=== PATIENT | male | born 1970 | race Caucasian/White ===

== ENCOUNTER → 2023-03-24 | Outpatient (CLI) | payer OTHER ==
--- NOTE | 2023-03-24 11:24 | Diagnostic Imaging Report ---
PROCEDURE: US left lower extremity venous. TECHNIQUE: Multiple real-time grayscale images were obtained over the left lower extremity in various projections. Additional duplex Doppler and color Doppler images were also obtained. INDICATION: Left leg swelling The veins of the left leg have good color filling and compressibility. There is phasic flow and normal response to augmentation. IMPRESSION: Negative venous Doppler left leg Dictated by: Dictated on workstation # [id number]
== END ==
LOC: RAD 10:25
PROVIDERS: ATTEND Family Medicine
DX: M79.89 Other specified soft tissue disorders (principal)

== ENCOUNTER → 2023-03-26 | Outpatient (CLI) | payer OTHER ==
[~2023-03-26] MED LIST: IOHEXOL 350 MG/ML 100 ML (OMNIPAQUE 350) VIAL IV ONE; NS 100 ML (IVPB) BAG IV ONE
--- NOTE | 2023-03-26 17:13 | Diagnostic Imaging Report ---
PROCEDURE: CT left lower extremity with contrast. TECHNIQUE: Multiple axial images of the left lower extremity were obtained after intravenous administration of iodinated contrast. Auto Exposure Controls were utilized during the CT exam to meet ALARA standards for radiation dose reduction. INDICATION: Calf pain. COMPARISON: Left lower extremity Doppler from 03/24/2023. FINDINGS: Mixed attenuation collection in the superficial aspect of the medial head of gastrocnemius is most compatible with a hematoma. This measures approximately 9 x 5 x 2 cm. The origin of the medial head of gastrocnemius remains intact. The soleus muscle is normal. Anterior and lateral compartment muscles of the lower leg are normal. No fracture or periosteal reaction associated with the tibia or fibula. IMPRESSION: 1. An intramuscular hematoma involving the superficial aspect of the medial head of gastrocnemius is likely due to partial muscle tear along the myofascial junction. Recommend followup physical exam to document resolution. If this does not significantly improve in 6 weeks, then at that time MRI of the lower leg without and with IV contrast would be advised. Dictated by: Dictated on workstation # [id number]
[2023-03-26 17:17] LABS: BILIRUBIN,TOTAL 0.8 MG/DL (0.1-1.0); CALCIUM 9.1 MG/DL (8.5-10.1); CREATININE SERUM 0.81 MG/DL (0.60-1.30); POTASSIUM 3.3 MMOL/L (3.6-5.0); TOTAL PROTEIN 6.8 GM/DL (6.4-8.2)
== END ==
LOC: RAD 15:38
PROVIDERS: ATTEND Family Medicine
DX: S80.12XA Contusion of left lower leg, initial encounter (principal); X58.XXXA Exposure to other specified factors, initial encounter
CPT/HCPCS: 36415; 73701; 80053

== ENCOUNTER 2023-08-05 13:04 | Emergency (ER) | payer OTHER ==
[~2023-08-05] VITALS: Ht 177.8 cm; Wt 115.7 kg
--- NOTE | 2023-08-05 13:18 | ED Chest Pain ---
General Chief Complaint: Chest Pain Stated Complaint: CHEST AND BACK PAIN Nursing Triage Note: PT AMB TO RM 6 WITH C/O CP X30 MIN RADIATING TO BACK AND L ARM. PT HAS TAKEN 81MG ASA TODAY Source: patient Exam Limitations: no limitations History of Present Illness Date Seen by Provider: Aug 05, 2023 Time Seen by Provider: 13:09 Initial Comments This 52 year old man with known CAD presents to the ER with complaints of chest pain and mid back pain similar to pain he experienced with prior AR about 1 year ago that was treated with stenting at [facility]. Pain started about 30 min INTAKE COORDINATOR. Pain was rated at 7/10 at its worst and is now 3/10. He took his usual ASA 81 mg today but did not take any nitro. He denies any associated symptoms of noted any exacerbating or alleviating factors. Dr. Hodges is his sustainability manager and Dr. Myers is his PCP. He is rather hypertensive on arrival. He has chronic sinus bradycardia which he reports is stable. Allergies and Home Medications Allergies Coded Allergies: No Allergy Information Available (Unverified , 03/26/23) Patient Home Medication List Home Medication List Reviewed: Yes Review of Systems Review of Systems Constitutional: no symptoms reported EENTM: No Symptoms Reported Respiratory: No Symptoms Reported Cardiovascular: See HPI Gastrointestinal: No Symptoms Reported Genitourinary: No Symptoms Reported Musculoskeletal: no symptoms reported Skin: no symptoms reported Psychiatric/Neurological: No Symptoms Reported Endocrine: No Symptoms Reported Hematologic/Lymphatic: No Symptoms Reported Past Gqzeemw-Arnull-Rgdqdr Hx Patient Social History Tobacco Use?: No Use of E-Cig and/or Vaping dev: No Substance use?: No Alcohol Use?: No Pt feels they are or have been: No Past Medical History Surgery/Hospitalization HX: AR, HTN, HERNIA Surgeries: Yes Coronary Stent Respiratory: No Cardiac: Yes (chronic sinus bradycardia) Coronary Artery Disease, Hypertension Neurological: No Genitourinary: No Gastrointestinal: Yes (umbilical hernia) Musculoskeletal: No Endocrine: No HEENT: No Cancer: No Psychosocial: No Integumentary: No Physical Exam Vital Signs Vital Signs - First Documented 08/05/23 13:09 Temp 36.0 Pulse 49 Resp 16 B/P (MAP) 189/102 (131) Pulse Ox 100 O2 Delivery Room Air Capillary Refill : Height, Weight, BMI Height: '" Weight: lbs. oz. kg; 36.00 BMI Method: General Appearance: No Apparent Distress, WD/WN, Obese HEENT: PERRL/EOMI, Normal ENT Inspection Neck: Normal Inspection; No JVD Respiratory: Chest Non Tender, Lungs Clear, Normal Breath Sounds, No Accessory Muscle Use Cardiovascular: Regular Rate, Rhythm, No Edema, No Murmur, Normal Peripheral Pulses Gastrointestinal: Normal Bowel Sounds, Non Tender, Soft, Other (small umbilical hernia noted) Extremity: Normal Inspection, Non Tender, No Calf Tenderness, No Pedal Edema Neurologic/Psychiatric: Alert, Oriented x3, No Motor/Sensory Deficits, Normal Mood/Affect, director pharmaceutical II-XII Norm as Tested Skin: Normal Color, Warm/Dry Progress/Results/Core Measures Results/Orders Lab Results Laboratory Tests Test 08/05/23 13:15 08/05/23 16:45 Range/Units White Blood Count 7.2 4.3-11.0 10^3/uL Red Blood Count 5.55 H 4.30-5.52 10^6/uL Hemoglobin 16.0 13.3-17.7 g/dL Hematocrit 48 40-54 % Mean Corpuscular Volume 87 80-99 fL Mean Corpuscular Hemoglobin 29 25-34 pg Mean Corpuscular Hemoglobin Concent 33 32-36 g/dL Red Cell Distribution Width 13.0 10.0-14.5 % Platelet Count 230 130-400 10^3/uL Mean Platelet Volume 9.9 9.0-12.2 fL Immature Granulocyte % (Auto) 0 % Neutrophils (%) (Auto) 66 42-75 % Lymphocytes (%) (Auto) 19 12-44 % Monocytes (%) (Auto) 10 0-12 % Eosinophils (%) (Auto) 5 0-10 % Basophils (%) (Auto) 1 0-10 % Neutrophils # (Auto) 4.7 1.8-7.8 10^3/uL Lymphocytes # (Auto) 1.3 1.0-4.0 10^3/uL Monocytes # (Auto) 0.7 0.0-1.0 10^3/uL Eosinophils # (Auto) 0.4 H 0.0-0.3 10^3/uL Basophils # (Auto) 0.1 0.0-0.1 10^3/uL Immature Granulocyte # (Auto) 0.0 0.0-0.1 10^3/uL Prothrombin Time 12.3 12.2-14.7 SEC INR Comment 0.9 0.8-1.4 Activated Partial Thromboplast Time 29 24-35 SEC Sodium Level 142 135-145 MMOL/L Potassium Level 3.6 3.6-5.0 MMOL/L Chloride Level 105 98-107 MMOL/L Carbon Dioxide Level 27 21-32 MMOL/L Anion Gap 10 5-14 MMOL/L Blood Urea Nitrogen 8 7-18 MG/DL Creatinine 0.77 0.60-1.30 MG/DL Estimat Glomerular Filtration Rate 107 BUN/Creatinine Ratio 10 Glucose Level 102 70-105 MG/DL Calcium Level 9.2 8.5-10.1 MG/DL Corrected Calcium 8.5-10.1 MG/DL Magnesium Level 2.2 1.6-2.4 MG/DL Total Bilirubin 0.5 0.1-1.0 MG/DL Aspartate Amino Transf (AST/SGOT) 19 5-34 U/L Alanine Aminotransferase (ALT/SGPT) 26 0-55 U/L Alkaline Phosphatase 74 40-136 U/L Myoglobin 32.7 10.0-92.0 NG/ML Troponin I < 0.028 < 0.028 <0.028 NG/ML Total Protein 8.0 6.4-8.2 GM/DL Albumin 4.6 H 3.2-4.5 GM/DL My Orders Orders - WAQAR JOHANSEN MD Ekg Tracing (08/05/23 13:08) Cbc And Automated Diff (08/05/23 13:09) Magnesium (08/05/23 13:09) Chest 1 View, Ap/Pa Only (08/05/23 13:09) Comprehensive Metabolic Panel (08/05/23 13:09) Myoglobin Serum (08/05/23 13:09) Protime With Inr (08/05/23 13:09) Partial Thromboplastin Time (08/05/23 13:09) O2 (08/05/23 13:09) Monitor-Rhythm Ecg Trace Only (08/05/23 13:09) Ed Iv/Invasive Line Start (08/05/23 13:09) Troponin I [place] (08/05/23 13:09) Nitroglycerin 0.4 Mg Btl 25's (Nitroglyc (08/05/23 13:30) Aspirin Chewable Tablet (Aspirin Chewabl (08/05/23 13:30) Troponin I [place] (08/05/23 16:45) Medications Given in ED Vital Signs/I&O 08/05/23 08/05/23 13:09 18:01 Temp 36.0 Pulse 49 40 Resp 16 16 B/P (MAP) 189/102 (131) 118/71 Pulse Ox 100 100 O2 Delivery Room Air Room Air Blood Pressure Mean: 131 Progress Progress Note : Progress Note ASA 243 mg was administered. Nitro was ordered but not given as chest pain dissipated with treatment. BP trended to normal without treatment. Chest pain work-up was pursued. ECG demonstrated sinus bradycardia with out other arrhythmia or ischemia as noted in my interpretation below. All labs were rev iewed and interpreted by me. CBC, CMP, Mag, Troponin, and serial 4 hour troponin were all normal. Chest x-ray was negative per review of radiologists report. Patient remained pain free and was discharged in stable condition. Initial ECG Impression Date: Aug 05, 2023 Initial ECG Impression Time: 13:10 Initial ECG Rate: 50 Initial ECG Rhythm: S.[place]aqu[place] Initial ECG Impression: Normal Comment Sinus bradycardia with no ST elevation or depression. No abnormal intervals or axis deviation. Diagnostic Imaging Diagonstic Imaging: Xray Plain Films/CT/US/NM/MRI: chest Comments NAME: [facility] REC#: [id number] PT STATUS: REG ER : 1970 PHYSICIAN: WAQAR JOHANSEN MD ADMIT DATE: 08/05/23/ER Signed Date of Exam:08/05/23 CHEST 1 VIEW, AP/PA ONLY PATIENT HISTORY: Chest pain. TECHNIQUE: Single frontal view of the chest. COMPARISON: None FINDINGS: The lung volumes are normal. No focal consolidation is seen. No large pleural effusion or pneumothorax is seen, although the right costophrenic angle is incompletely included. The cardiomediastinal silhouette is normal in size and contour. No acute osseous abnormality is seen. IMPRESSION: No acute pulmonary abnormality seen. Dictated by: Dictated on workstation # [id number] Dict: 08/05/23 1330 Trans: 08/05/23 1337 [facility] [id number] Interpreted by: KSENIA TOLLIVER MD Electronically signed by: KSENIA TOLLIVER MD 08/05/23 1337 Departure Impression Primary Impression: Chest pain Qualified Codes: R07.9 - Chest pain, unspecified Additional Impression: History of coronary artery disease Disposition: HOME, SELF-CARE Condition: Improved Departure-Patient Inst. Decision time for Depature: 17:34 Referrals: CHRISTIE MYERS MD (PCP/Family) Primary Care Physician Patient Instructions: Chest Pain, Adult ED Add. Discharge Instructions: Your work-up in the emergency room was unremarkable. However, your emergency room work-up does not completely rule out heart disease as a possible cause of your chest pain. It is important for you to follow-up with your primary cardio logist for further evaluation and recommendations. Return to the emergency room if you have worsening symptoms, especially if you have recurrent episodes of chest pain. Continue your medications and treatment plan as otherwise directed by your sustainability manager and primary care provider. All discharge instructions reviewed with patient and/or family. Voiced understanding. Copy Copies To 1: CHRISTIE MYERS MD, JOSHUA T MD Aug 05, 2023 13:18
[2023-08-05 13:23] LABS: BASOPHILS # (AUTO) 0.1 10^3/uL (0.0-0.1); BASOPHILS % (AUTO) 1 % (0-10); EOSINOPHILS # (AUTO) 0.4 10^3/uL (0.0-0.3); EOSINOPHILS % (AUTO) 5 % (0-10); HEMATOCRIT 48 % (40-54); LYMPHOCYTES # (AUTO) 1.3 10^3/uL (1.0-4.0); LYMPHOCYTES % (AUTO) 19 % (12-44); MEAN CORPUSCULAR HEMOGLOBIN 29 pg (25-34); MEAN CORPUSCULAR HGB CONC 33 g/dL (32-36); MEAN CORPUSCULAR VOLUME 87 fL (80-99); MEAN PLATELET VOLUME 9.9 fL (9.0-12.2); MONOCYTES # (AUTO) 0.7 10^3/uL (0.0-1.0); MONOCYTES % (AUTO) 10 % (0-12); NEUTROPHILS # (AUTO) 4.7 10^3/uL (1.8-7.8); NEUTROPHILS % (AUTO) 66 % (42-75); PLATELET COUNT 230 10^3/uL (130-400); WHITE BLOOD COUNT 7.2 10^3/uL (4.3-11.0)
[2023-08-05] MEDS ORDERED: ASPIRIN 81 MG CHEWABLE TABLET PO ONE (13:30)
[2023-08-05] MEDS ORDERED: NITROGLYCERIN 0.4 MG SL TABLETS BTL 25'S SL PRN (13:30)
[2023-08-05 13:35] LABS: INR 0.9 (0.8-1.4); PROTHROMBIN TIME PATIENT 12.3 SEC (12.2-14.7)
--- NOTE | 2023-08-05 13:37 | Diagnostic Imaging Report ---
PATIENT HISTORY: Chest pain. TECHNIQUE: Single frontal view of the chest. COMPARISON: None FINDINGS: The lung volumes are normal. No focal consolidation is seen. No large pleural effusion or pneumothorax is seen, although the right costophrenic angle is incompletely included. The cardiomediastinal silhouette is normal in size and contour. No acute osseous abnormality is seen. IMPRESSION: No acute pulmonary abnormality seen. Dictated by: Dictated on workstation # [id number]
[2023-08-05 13:48] LABS: ALANINE AMINOTRANSFERASE 26 U/L (0-55); ALBUMIN 4.6 GM/DL (3.2-4.5); ALKALINE PHOSPHATASE 74 U/L (40-136); BILIRUBIN,TOTAL 0.5 MG/DL (0.1-1.0); BUN/CREATININE RATIO 10; CALCIUM 9.2 MG/DL (8.5-10.1); CARBON DIOXIDE 27 MMOL/L (21-32); CHLORIDE 105 MMOL/L (98-107); CREATININE SERUM 0.77 MG/DL (0.60-1.30); GFR ESTIMATED 107; GLUCOSE 102 MG/DL (70-105); MAGNESIUM 2.2 MG/DL (1.6-2.4); POTASSIUM 3.6 MMOL/L (3.6-5.0); SODIUM 142 MMOL/L (135-145)
[2023-08-05 18:01] VITALS: BP 118/71
== END 2023-08-05 18:01 | disposition home or self-care (01) ==
LOC: EDUNIT# 13:04 → ER 13:07
DX: I25.10 Atherosclerotic heart disease of native coronary artery without angina pectoris (principal); I25.2 Old myocardial infarction
CPT/HCPCS: 36415; 71045; 80053; 83735; 83874; 84484; 85025; 85610; 85730; 93005; 93041

== ENCOUNTER 2023-08-12 06:15 | Outpatient (CLI) | payer OTHER ==
[~2023-08-12] VITALS: Ht 177.8 cm; Wt 115.7 kg
[2023-08-12] MEDS ORDERED: ASPI-1238 PO (16:34)
[2023-08-12] MEDS ORDERED: MODA200T39 PO (16:34)
[2023-08-12] MEDS ORDERED: ATOR80TA76 PO (16:34)
[2023-08-12] MEDS ORDERED: LOSA100T58 PO (16:34)
[2023-08-12] MEDS ORDERED: PRAS10TA10 PO (16:34)
== END 2023-08-12 16:38 | disposition home or self-care (01) ==
LOC: PREOP 06:15
PROVIDERS: ATTEND Surgery
DX: Z01.818 Encounter for other preprocedural examination (principal)

== ENCOUNTER 2023-08-18 05:50 | Outpatient (CLI) | payer OTHER ==
[~2023-08-18] VITALS: Ht 177.8 cm; Wt 115.7 kg
[~2023-08-18 05:50] MED LIST changes: +ASPI-1238 PO; +ATOR80TA76 PO; -IOHEXOL 350 MG/ML 100 ML (OMNIPAQUE 350) VIAL IV ONE; +LOSA100T58 PO; +MODA200T39 PO; -NS 100 ML (IVPB) BAG IV ONE; +PRAS10TA10 PO
== END 2023-08-19 07:42 | disposition home or self-care (01) ==
LOC: PREOP 05:50
PROVIDERS: ATTEND Surgery
DX: Z01.818 Encounter for other preprocedural examination (principal)

== ENCOUNTER 2023-08-25 10:59 | Day surgery (SDC) | payer OTHER ==
[~2023-08-25] VITALS: Ht 177.8 cm; Wt 115.7 kg
[2023-08-25 11:20] VITALS: BP 134/84
[2023-08-25] MEDS: LACTATED RINGERS 1,000 ML 1,000 ML IV STA (11:25)
--- NOTE | 2023-08-25 13:21 | Progress Note-Pre Operative ---
Pre-Operative Progress Note Date H&P Reviewed: Aug 25, 2023 Time H&P Reviewed: 13:20 History & Physical: H&P Reviewed, Patient Examed, No changes noted Pre-Operative Diagnosis: Screening GUCCI CRUM DO Aug 25, 2023 13:21
[2023-08-25] MEDS ORDERED: proPOfol INJECTION 200 MG/20 ML VIAL IV ONE (13:46)
--- NOTE | 2023-08-25 13:59 | Progress Note-Post Operative ---
Post-Operative Progess Note Surgeon (s)/Customer Account Administrator (s) Surgeon GUCCI CRUM DO Customer Account Administrator: n/a Pre-Operative Diagnosis Screening Post-Operative Diagnosis Colon polyps, diverticulosis Procedure & Operative Findings Date of Procedure 08/25/23 Procedure Performed/Findings Colonoscopy w/ hot bx polypectomy x4 Anesthesia Type DO anesthesiologist Estimated Blood Loss Estimated blood loss (mL): none Specimens/Packing Specimens Removed Colon polyps GUCCI CRUM DO Aug 25, 2023 13:59
[2023-08-25 14:00] VITALS: BP 106/62
--- NOTE | 2023-08-25 14:02 | Discharge Inst-Simple/Standard ---
Discharge Inst-Standard Patient Instructions/Follow Up Plan of Care/Instructions/FU: No 2 weeks Activity as Tolerated: Yes Discharge Diet: Regular Diet (High fiber) GUCCI CRUM DO Aug 25, 2023 14:02
[2023-08-25 14:05] VITALS: BP 137/82
[2023-08-25 15:00] VITALS: BP 137/82
--- NOTE | 2023-08-25 15:29 | Anesthesia-General Post-Op ---
MAC Patient Condition Mental Status/LOC: Same as Preop Cardiovascular: Satisfactory Nausea/Vomiting: Absent Respiratory: Satisfactory Pain: Controlled Complications: Absent Post Op Complications Complications None Follow Up Care/Instructions Patient Instructions None needed. Anesthesiology Discharge Order Discharge Order Patient is doing well, no complaints, stable vital signs, no apparent adverse anesthesia problems. No complications reported per nursing. JADE CERON CRNA Aug 25, 2023 15:29
--- NOTE | 2023-08-25 19:56 | OPERATIVE REPORT ---
DATE OF SERVICE: 08/25/2023 PREOPERATIVE DIAGNOSIS: Screening colonoscopy. POSTOPERATIVE DIAGNOSES: Colon polyps, diverticulosis. PROCEDURE: Colonoscopy with hot biopsy polypectomy x4. SURGEON: Gucci Sarabia DO ANESTHESIA: Per MDA. ESTIMATED BLOOD LOSS: None. COMPLICATIONS: None. INDICATIONS: The patient is a 52-year-old male, needing colonoscopy. He understands risks and benefits of procedure and wished to proceed. Consent was signed in the chart. DESCRIPTION OF PROCEDURE: The patient was taken to endoscopy suite, placed in left lateral recumbent position. Timeout was performed. Digital rectal exam was performed. No palpable polyps, masses or ulcerations. Scope was inserted in the rectum, advanced all the way to the cecum with minimal difficulty. Prep was adequate with irrigation and suction. Scope was then slowly retracted back. No polyps, masses or ulcerations in the cecum. In the ascending colon, 2 polyps were present, which hot biopsy polypectomies were performed. Scope was then continuously retracted back to the transverse colon. Another polyp was present, which hot biopsy polypectomy was performed. Scope was then continuously retracted back into the descending colon where another polyp was present, which hot biopsy polypectomy was performed. Scope was then continuously retracted back. No polyps, masses or ulcerations remainder of the descending and sigmoid colon. Some diverticulosis present within the sigmoid colon. Once in the rectum, scope was retroflexed noting no other pathology. Scope was returned to its normal position, slowly withdrawn until completely removed. The patient tolerated the procedure well without complications, taken to recovery room in stable condition. RECOMMENDATIONS: The patient will repeat colonoscopy in 5 years. He will follow up on pathology in 2 weeks. We would recommend high fiber diet due to diverticulosis. Job ID: [id number] DocumentID: [id number] Dictated Date: 08/25/2023 14:00:25 Pressure Controller Date: 08/25/2023 19:55:00 Dictated By: GUCCI SARABIA DO
== END 2023-08-25 15:00 | disposition home or self-care (01) ==
LOC: ENDO 10:59
PROVIDERS: ATTEND Surgery
DX: Z12.11 Encounter for screening for malignant neoplasm of colon (principal); K57.30 Diverticulosis of large intestine without perforation or abscess without bleeding; D12.2 Benign neoplasm of ascending colon; K63.5 Polyp of colon; D12.3 Benign neoplasm of transverse colon; E66.9 Obesity, unspecified; K42.0 Umbilical hernia with obstruction, without gangrene; E27.8 Other specified disorders of adrenal gland; N28.9 Disorder of kidney and ureter, unspecified; R93.5 Abnormal findings on diagnostic imaging of other abdominal regions, including retroperitoneum; Z79.02 Long term (current) use of antithrombotics/antiplatelets; Z68.39 Body mass index [BMI] 39.0-39.9, adult; Z87.891 Personal history of nicotine dependence

== ENCOUNTER 2023-08-27 09:12 | Day surgery (SDC) | payer OTHER ==
[~2023-08-27] VITALS: Ht 177.8 cm; Wt 115.7 kg
[2023-08-27] VITALS (12 sets, daily range): BP systolic 121–170; BP diastolic 65–90
[2023-08-27] MEDS ORDERED: ceFAZolin INJECTION 2,000 MG in NS (IVPB) 50 ML 50 ML IV ONE (09:30)
[2023-08-27] MEDS ORDERED: LACTATED RINGERS 1,000 ML 1,000 ML IV PRN (09:30)
--- NOTE | 2023-08-27 09:50 | Progress Note-Pre Operative ---
Pre-Operative Progress Note Date H&P Reviewed: Aug 27, 2023 Time H&P Reviewed: 09:50 History & Physical: H&P Reviewed, Patient Examed, No changes noted Pre-Operative Diagnosis: umbilical hernia GUCCI CRUM DO Aug 27, 2023 09:50
[2023-08-27] MEDS ORDERED: LIDOCAINE 2% w/EPI 1:100,000 20 ML VIAL ONE (10:05)
[2023-08-27] MEDS ORDERED: ROCURONIUM 50 MG/5 ML VIAL IV ONE (10:13)
[2023-08-27] MEDS ORDERED: GLYCOPYRROLATE INJ 0.2 MG/ML 2 ML VIAL ONE (10:13)
[2023-08-27] MEDS ORDERED: fentaNYL INJECTION 100 MCG/2 ML VIAL ONE ×2 (10:13→12:36)
[2023-08-27] MEDS ORDERED: MIDAZOLAM INJ 2 MG/2 ML VIAL ONE (10:13)
[2023-08-27] MEDS ORDERED: dexAMETHasone INJ 10 MG/ML 1 ML VIAL ONE (10:13)
[2023-08-27] MEDS ORDERED: proPOfol INJECTION 200 MG/20 ML VIAL IV ONE (10:13)
[2023-08-27] MEDS ORDERED: ONDANSETRON INJECTION 4 MG/2 ML (SDV) ONE (10:13)
[2023-08-27] MEDS ORDERED: NEOSTIGMINE 1 MG/1ML 10 ML VIAL ONE (10:13)
[2023-08-27] MEDS ORDERED: LIDOCAINE PF 2% 5 ML VIAL ONE (10:13)
[2023-08-27] MEDS ORDERED: LIDOCAINE 2% w/EPI 1:100,000 20 ML VIAL INJ ONE (11:08)
--- NOTE | 2023-08-27 11:58 | Anesthesia-General Post-Op ---
General Patient Condition Mental Status/LOC: Same as Preop Cardiovascular: Satisfactory Nausea/Vomiting: Absent Respiratory: Satisfactory Pain: Controlled Complications: Absent Post Op Complications Complications None Follow Up Care/Instructions Patient Instructions None needed. Anesthesia/Patient Condition Patient Condition Patient is doing well, no complaints, stable vital signs, no apparent adverse anesthesia problems. No complications reported per nursing. JADE CERON CRNA Aug 27, 2023 11:58
[2023-08-27] MEDS ORDERED: fentaNYL INJECTION 100 MCG/2 ML VIAL IVP ONE (12:00)
[2023-08-27] MEDS ORDERED: morphine INJ 10 MG/ML 1ML (SYR OR VIAL) IVP ONE (12:00)
[2023-08-27] MEDS ORDERED: ONDANSETRON INJECTION 4 MG/2 ML (SDV) IVP PRN (12:00)
[2023-08-27] MEDS ORDERED: MEPERIDINE INJ 50 MG/ML VIAL IVP ONE (12:00)
[2023-08-27] MEDS ORDERED: ACHD5005 PO (12:12)
[2023-08-27] MEDS ORDERED: DOCU-143 PO (12:12)
--- NOTE | 2023-08-27 12:14 | Discharge Inst-Simple/Standard ---
Discharge Inst-Standard Patient Instructions/Follow Up Plan of Care/Instructions/FU: 2 weeks No Restart antiplatelets in 4 days. Activity as Tolerated: No Discharge Diet: Regular Diet Other Inst to Patient Follow up Appt: Make appointment for 2 week. Restart antiplatelets in 4 days. Instructions: No lifting greater than 10 pounds. No strenuous activity. May shower in 24 hours, no tub bath or soaking. Use incentive spirometer at home as directed. No Smoking Skin/Wound Care: You have special glue over your incision that will fall off on it's own. If there is a bandage ball in umbilicus, remove it in 48 hours. Symptoms to Report: Appetite Changes, Extremity Discoloration, Numbness/Tingling, Swelling Increased, Bleeding Excessive, Eyesight Changes, Pain Increased, Urine Color Change, Constipation(Persistent), Fever over 101 degree F, Pain/Pressure in chest, Urinating Difficulty, Cough Up/Vomit Blood, Heart Beat Irreg/Pounding, Pain/Pressure in jaw, Vaginal Bleeding Increase, Cramps in feet or legs, Lightheadedness, Pain/Pressure in shoulder, Diarrhea(Persistent), Memory Changes Suddenly, Questions/Concerns, Weight gain consecutive days, Dizziness/Fainting, Nausea/Vomiting, Shortness of Breath, Weight gain over 2 pounds If questions or concerns contact your physician Or seek help at emergency department. GUCCI CRUM DO Aug 27, 2023 12:14
--- NOTE | 2023-08-27 12:16 | Progress Note-Post Operative ---
Post-Operative Progess Note Surgeon (s)/Forensic Toxicologist (s) Surgeon GUCCI CRUM DO Forensic Toxicologist: Maricarmen Pre-Operative Diagnosis umbilical hernia Post-Operative Diagnosis incarcerated umbilical hernia Procedure & Operative Findings Date of Procedure 08/27/23 Procedure Performed/Findings robo incarcerated incisional hernia repair. Anesthesia Type general Estimated Blood Loss Estimated blood loss (mL): minimal Specimens/Packing Specimens Removed na GUCCI CRUM DO Aug 27, 2023 12:16
[2023-08-27] MEDS ORDERED: morphine INJ 10 MG/ML 1ML (SYR OR VIAL) ONE (12:25)
[2023-08-27] MEDS ORDERED: HYDROcodone/ACETAMINOPHEN 5 MG/325 MG TABLET PO ONE (13:45)
--- NOTE | 2023-08-28 04:14 | OPERATIVE REPORT ---
DATE OF SERVICE: 08/27/2023 PREOPERATIVE DIAGNOSIS: Incarcerated umbilical hernia. POSTOPERATIVE DIAGNOSIS: Incarcerated umbilical hernia. PROCEDURE: Robotic incarcerated umbilical hernia repair. SURGEON: Gucci Sarabia DO MOVER HELPER: Dudley Hernadez DO., assisted in retraction, dissection, and closure, passing of instruments with robot. INDICATIONS: The patient is a 52-year-old male with a large umbilical hernia that was incarcerated. He understands risks and benefits of procedure and wishes to proceed. Consent was signed on the chart. DESCRIPTION OF PROCEDURE: The patient was taken to the operating suite where he was prepped and draped in sterile fashion. Timeout was performed. Local anesthetic was infiltrated in the left upper quadrant. An 11 blade scalpel was used to make a skin incision. Cautery used to dissect down through the subcutaneous tissues and score the anterior fascia. The muscle was then divided. Posterior fascia was then divided and the abdomen was then entered. A silvestre trocar was inserted. Pneumoperitoneum was achieved. Under direct visualization of laparoscope, two 8 mm trocars were placed in the left side of the abdomen. The robot was then docked. The patient with incarcerated omental fat present. Using the robotic scissors and cautery grasper, the omental fat was then dissected free from the hernia contents and reduced. The falciform ligament was then partially taken down. Using Stratafix suture, the hernia contents, which was slightly larger than 3 cm was then closed in a running fashion. The robot was then undocked. An echo Ventralight mesh was then inserted and grasped through a stab incision at the umbilicus and a 5 mm trocar was placed in the right side of the abdomen. A SecureStrap tacker was used to circumferentially tack the mesh in place. The balloon was removed. The inner crown was created as well. The abdomen was then desufflated. The trocars were removed. The 12 mm fascial defect was then closed using 0 Vicryl suture in a figure-of-8 fashion. The skin was then closed using 4-0 Monocryl in subcuticular fashion. The abdomen was washed and dried and skin Affix was placed over the incisions. The patient tolerated the procedure well without complications, taken to recovery room in stable condition. Job ID: [id number] DocumentID: [id number] Dictated Date: 08/27/2023 22:27:22 Comfort Filler Date: 08/28/2023 04:13:00 Dictated By: GUCCI SARABIA DO
== END 2023-08-27 14:25 | disposition home or self-care (01) ==
LOC: SDC 09:12
PROVIDERS: ATTEND Surgery
DX: K42.0 Umbilical hernia with obstruction, without gangrene (principal); R93.5 Abnormal findings on diagnostic imaging of other abdominal regions, including retroperitoneum; E27.8 Other specified disorders of adrenal gland; N28.9 Disorder of kidney and ureter, unspecified; Z79.02 Long term (current) use of antithrombotics/antiplatelets; Z87.891 Personal history of nicotine dependence
CPT/HCPCS: 49594; 87081; C1781